=== PATIENT | female | born 1975 | race Caucasian/White ===

== ENCOUNTER 2017-08-08 05:48 | Emergency (ER) | payer SELFPAY ==
[2017-08-08] MEDS ORDERED: Lidocaine 1% w/Epinephrine 1:100K 20 ML VIAL ONE (06:27)
== END 2017-08-08 06:56 | disposition home or self-care (01) ==
LOC: ERS 05:48
DX: L02.416 Cutaneous abscess of left lower limb (principal); F31.9 Bipolar disorder, unspecified; F17.210 Nicotine dependence, cigarettes, uncomplicated; Z71.6 Tobacco abuse counseling; Z79.899 Other long term (current) drug therapy
CPT/HCPCS: 10060; 99406; J2001

== ENCOUNTER 2020-02-05 23:37 | Emergency (ER) | payer SELFPAY ==
[2020-02-06] MEDS ORDERED: Ondansetron ODT 4 MG TAB ONE (00:11)
[2020-02-06 00:40] LABS: Bilirubin Negative (Negative); Blood, Urine Negative (Negative); Clarity Clear (Clear); Glucose, Urine (Dipstick) Normal (Negative); Ketone, Urine Negative (Negative); Leukocyte Negative Leu/uL (Negative); Nitrite Negative (Negative); Protein, Urine (Dipstick) Negative (Neg-Trace); Specific Gravity, Urine 1.012 (1.002-1.036); Urobilinogen Normal mg/dL (Less than 2); pH, Urine 7.5 (5.0-9.0)
[2020-02-06 01:09] LABS: Pregnancy Test - Urine (BHCG) Negative (Negative); Pregu Control Background? CLEAR/WHITE (CLR/WHITE); Pregu Control Bar Appear? YES (CONTROL BAR); Specific Gravity 1.012 (1.002-1.036)
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
== END 2020-02-06 02:04 | disposition home or self-care (01) ==
LOC: ERS 23:37
DX: R11.2 Nausea with vomiting, unspecified (principal); R10.31 Right lower quadrant pain; F31.9 Bipolar disorder, unspecified; F17.210 Nicotine dependence, cigarettes, uncomplicated; Z79.899 Other long term (current) drug therapy
CPT/HCPCS: 74176; 81003; 81025; Q0162

== ENCOUNTER 2020-03-20 08:40 | Emergency (ER) | payer SELFPAY | END 2020-03-20 09:42 | disposition home or self-care (01) | LOC: ERS 08:40 | DX: B34.9 Viral infection, unspecified (principal); R29.700 NIHSS score 0; F17.210 Nicotine dependence, cigarettes, uncomplicated; Z79.899 Other long term (current) drug therapy | CPT/HCPCS: 99283 ==

== ENCOUNTER 2021-09-11 14:25 | Emergency (ER) | payer SELFPAY | END 2021-09-11 14:57 | disposition home or self-care (01) | LOC: ERS 14:25 | DX: J02.9 Acute pharyngitis, unspecified (principal); R09.81 Nasal congestion; R05.9 Cough, unspecified; Z20.822 Contact with and (suspected) exposure to COVID-19; F17.210 Nicotine dependence, cigarettes, uncomplicated; E03.9 Hypothyroidism, unspecified; Z79.899 Other long term (current) drug therapy | CPT/HCPCS: 99283; U0003; U0005 ==

== ENCOUNTER 2021-12-01 08:34 | Outpatient (CLI) | payer MEDICAID | END 2021-12-01 08:35 | disposition home or self-care (01) | LOC: BICMAMMO 08:34 | PROVIDERS: ATTEND Nurse Practitioner Family | DX: Z12.31 Encounter for screening mammogram for malignant neoplasm of breast (principal) | CPT/HCPCS: 77067 ==

== ENCOUNTER 2021-12-17 09:13 | Emergency (ER) | payer MEDICAID, SELFPAY | END 2021-12-17 11:01 | disposition home or self-care (01) | LOC: ERS 09:13 | DX: M25.572 Pain in left ankle and joints of left foot (principal); F17.210 Nicotine dependence, cigarettes, uncomplicated; E03.9 Hypothyroidism, unspecified ==

== ENCOUNTER 2023-04-05 19:49 | Emergency (ER) | payer SELFPAY ==
[2023-04-05 21:05] LABS: %Basophils 0.4 % (0.0-1.0); %Eosinophils 0.2 % (0.0-10.0); %Lymphocytes 13.8 % (21.0-51.0); %Monocytes 9.7 % (0.0-10.0); %Neutrophils 75.5 % (42.0-75.0); Hematocrit 44.6 % (36.0-47.0); Hemoglobin 14.6 g/dL (12.0-16.0); Mean Corpuscular HGB CONC 32.7 g/dL (32.0-36.0); Mean Corpuscular Hemoglobin 29.6 pg (27.0-31.0); Mean Corpuscular Volume 90.5 fl (78.0-98.0); Mean Platelet Volume 10.1 fL (7.4-10.4); Platelet Count 281 10x3/uL (130-400); RBC Distribution Width 13.2 % (11.5-14.5); Red Blood Cell (RBC) Count 4.93 mill/uL (4.20-5.40); White Blood Cell (WBC) Count 10.6 10x3/uL (4.8-10.8)
[2023-04-05 21:29] LABS: ALT (SGPT) 22 U/L (8-55); AST (SGOT) 32 U/L (5-34); Albumin 4.3 g/dL (3.5-5.0); Alkaline Phosphatase 95 U/L (40-110); Anion Gap 14 mmol/L (10-20); BUN (Urea Nitrogen) 8 mg/dL (7.0-18.7); Bilirubin, Total 0.5 mg/dL (0.2-1.2); Calc. Creatinine Clearance 0 mL/min (70-130); Calcium 8.7 mg/dL (7.8-10.44); Carbon Dioxide 26 mmol/L (22-29); Chloride 99 mmol/L (98-107); Estimated GFR 80; Globulin 3.2 g/dL (2.4-3.5); Glucose 142 mg/dL (70-105); Potassium 4.2 mmol/L (3.5-5.1); Protein, Total 7.5 g/dL (6.0-8.3); Sodium 135 mmol/L (136-145)
[2023-04-05] MEDS ORDERED: Ibuprofen 800 MG TAB ONE (22:06)
[2023-04-05] MEDS ORDERED: Acetaminophen 500 MG TAB ONE (22:06)
[2023-04-05 22:54] LABS: SARS-CoV-2 NAA Rapid Test Not Detected (NotDetected)
== END 2023-04-05 22:20 | disposition home or self-care (01) ==
LOC: ERS 19:49
DX: R06.2 Wheezing (principal); R05.9 Cough, unspecified; E03.9 Hypothyroidism, unspecified; F17.290 Nicotine dependence, other tobacco product, uncomplicated; Z79.899 Other long term (current) drug therapy
CPT/HCPCS: 36415; 71045; 80053; 85025